=== PATIENT | female | born 1935 | race Caucasian/White ===

== ENCOUNTER 2017-04-23 10:27 | Emergency (ER) | payer MEDICARE ==
[~2017-04-23] VITALS: Ht 152.4 cm; Wt 50.9 kg
[2017-04-23 10:28] VITALS: BP 187/70; PULSE 60; RESP 16; TEMP 98.5; O2SAT 100
--- NOTE | 2017-04-23 10:41 | PD ---
HPI Chief Complaint: Complaint Time Seen by Provider: 10:30 Travel History International Travel<30 days: No Contact w/Intl Traveler<30days: No Traveled to known affect area: No History of Present Illness HPI The patient is a 82-year-old female who presents emergency department for 1 day history of dysuria, frequency, urgency, and hematuria. The patient complains of suprapubic pressure and discomfort associated with hematuria which is bright pink to red. She does complain of frequency and urgency, notes minimal dysuria. She does have a history of bladder infections with similar symptoms. Patient does have a history of nephrolithiasis, however, states she has significant pain at that time and denies any current flank pain or back pain. She denies any fever, chills, or sweats. She recently traveled from [place] to [place] with her daughter. Ceron are mild to moderate without any alleviating or exacerbating factors. PFSH Past Medical History Arthritis: No Asthma: No Autoimmune Disease: No Blood Disorders: No Heart Rhythm Problems: Yes Cancer: No Cardiovascular Problems: Yes High Cholesterol: No Chest Pain: No Congestive Heart Failure: No COPD: No Cerebrovascular Accident: No GERD: No Headaches: No Hepatitis: No Hiatal Hernia: No Hypertension: Yes Kidney Stones: Yes (30 years ago) Musculoskeletal: No Psychiatric: No Respiratory: No Myocardial Infarction: No Seizures: No Sleep Apnea: No Thyroid Disease: No Ulcer: No Past Surgical History Abdominal Surgery: No AICD: No Cardiac Surgery: Yes (PACEMAKER) Ear Surgery: No Endocrine Surgery: No Eye Surgery: No Genitourinary Surgery: No Gynecologic Surgery: No Oral Surgery: No Pacemaker: Yes (ON DEMAND) Thoracic Surgery: No Social History Alcohol Use: No Tobacco Use: No Substance Use: No Allergies-Medications (Allergen,Severity, Reaction): Coded Allergies: codeine (Unverified Allergy, Severe, VOMITING, 04/23/17) HIVES penicillin G (Unverified Allergy, Severe, Rash, 04/23/17) Reported Meds & Prescriptions Reported Meds & Active Scripts Active Review of Systems Except as stated in HPI: all other systems reviewed are Neg General / Constitutional: No: Fever Gastrointestinal: No: Nausea, Vomiting Genitourinary: Positive: Urgency, Frequency, Dysuria, Hematuria, Pelvic Pain ( suprapubic discomfort), No: Flank Pain Physical Exam Narrative GENERAL: Awake, alert, very pleasant 82-year-old female who appears her stated age and is in no acute respiratory distress. SKIN: Focused skin assessment warm/dry. HEAD: Atraumatic. Normocephalic. EYES: No injection or drainage. NECK: Trachea midline. No JVD. GASTROINTESTINAL: Abdomen soft, non-tender, nondistended. No suprapubic tenderness. Back: No CVA tenderness. MUSCULOSKELETAL: No obvious deformities. No clubbing. No cyanosis. No edema. NEUROLOGICAL: Awake and alert. No obvious cranial nerve deficits. Motor grossly within normal limits. Normal speech. PSYCHIATRIC: Appropriate mood and affect; insight and judgment normal. Data Data Last Documented VS Vital Signs Date Time Temp Pulse Resp B/P (MAP) Pulse Ox O2 Delivery O2 Flow Rate FiO2 04/23/17 10:28 98.5 60 16 187/70 (109) 100 Orders Orders Urinalysis - C+S If Indicated (04/23/17 10:36) Sulfamet-Trimeth Ds 800-160 Mg (Bactrim (04/23/17 10:45) Phenazopyridine (Pyridium) (04/23/17 10:45) Urine Culture (04/23/17 11:18) Labs Laboratory Tests Test 04/23/17 11:18 Urine Color RED Urine Turbidity CLOUDY Urine pH 6.5 Urine Specific [place] 1.020 Urine Protein 300 OR GREATER mg/dL Urine Glucose (UA) NEG mg/dL Urine Ketones NEG mg/dL Urine Occult Blood LARGE Urine Nitrite NEG Urine Bilirubin NEG Urine Urobilinogen 0.2 MG/DL Urine Leukocyte Esterase SMALL Urine RBC /hpf Urine WBC 81 /hpf Microscopic Urinalysis Comment CULTURE INDICATED MDM Medical Decision Making Medical Screen Exam Complete: Yes Emergency Medical Condition: Yes Medical Record Reviewed: Yes Interpretation(s) Laboratory Tests Test 04/23/17 11:18 Urine Color RED Urine Turbidity CLOUDY Urine pH 6.5 Urine Specific [place] 1.020 Urine Protein 300 OR GREATER mg/dL Urine Glucose (UA) NEG mg/dL Urine Ketones NEG mg/dL Urine Occult Blood LARGE Urine Nitrite NEG Urine Bilirubin NEG Urine Urobilinogen 0.2 MG/DL Urine Leukocyte Esterase SMALL Urine RBC /hpf Urine WBC 81 /hpf Microscopic Urinalysis Comment CULTURE INDICATED Differential Diagnosis Differential diagnosis includes hemorrhagic cystitis, UTI, pyelonephritis, nephrolithiasis, coagulopathy, acute renal failure. Narrative Course A UA was sent to lab. UA reveals large blood, innumerable rbc's, and 81 wbc's. No flank pain or nausea/vomiting, most likely hemorrhagic cystitis versus nephrolithiasis. The patient has no pain except suprapubic discomfort, will be placed on Bactrim and Pyridium. She is advised to return if symptoms worsen or progress. Urine culture is pending. Diagnosis Primary Impression: Hemorrhagic cystitis Patient Instructions: General Instructions Additional Instructions: Please provide the patient a copy of her UA results. Medications as directed. Return if symptoms worsen or progress. Med/Other Pt SpecificInfo: Prescription(s) given Scripts Phenazopyridine (Pyridium) 100 Mg Tab 200 MG PO Q8H Y for DYSURIA for 2 Days, #12 TAB 0 Refills Prov: Leo Rodriguez MD 04/23/17 Sulfamethoxazole-Trimethoprim (Bactrim DS) 800-160 Mg Tab 1 TAB PO BID for Infection, #14 TAB 0 Refills Prov: Leo Rodriguez MD 04/23/17 Disposition: 01 DISCHARGE HOME Condition: Stable Leo Rodriguez MD Apr 23, 2017 10:41
[2017-04-23] MEDS ORDERED: PHENAZOPYRIDINE HCL 200 MG TAB PO ONE (10:45)
[2017-04-23] MEDS ORDERED: SULFAMETHOXAZOLE-TRIMETHOPRIM DS 800-160 MG TAB PO ONE (10:45)
[2017-04-23 11:27] LABS: BILIRUBIN, URINE NEG (NEG); BLOOD, URINE LARGE (NEG); GLUCOSE,URINE NEG (NEG); KETONE, URINE NEG (NEG); NITRITE,URINE NEG (NEG); PH, URINE 6.5 (5.0-8.5); URINE LEUKOCYTE ESTERASE SMALL (NEG)
[2017-04-23 11:32] LABS: URINE COLOR RED (YELLW/STRAW)
[2017-04-23] MEDS ORDERED: PHEN0.4T PO (11:44)
[2017-04-23] MEDS ORDERED: BACT800T5 PO (11:44)
== END 2017-04-23 11:54 | disposition home or self-care (01) ==
LOC: NEPC 10:27
DX: N30.91 Cystitis, unspecified with hematuria (principal); B96.89 Other specified bacterial agents as the cause of diseases classified elsewhere; I10 Essential (primary) hypertension
CPT/HCPCS: 81001; 87086; 99284